=== PATIENT | female | born 1980 | race African-American/Black ===

== ENCOUNTER 2018-01-29 11:35 | Emergency (ER) | payer BC, OTHER ==
[~2018-01-29] VITALS: Ht 160 cm; Wt 72.6 kg
[2018-01-29 12:23] LABS: BASOPHILS 0.4 % (0.0-2.0); EOSINOPHILS 1.1 % (0.0-3.0); HEMATOCRIT 41.4 % (37.0-47.0); HEMOGLOBIN 13.8 gm/dL (12.0-15.0); LYMPHOCYTES 6.3 % (24.0-44.0); MCH 28.9 pg (26.0-34.0); MCHC 33.4 g/dL (28.0-37.0); MCV 86.5 fL (80.0-100.0); MONOCYTES 4.8 % (1.0-8.0); PLATELET COUNT 231 thou/uL (150-400); POLYS 87.4 % (36.0-66.0); RBC 4.78 mil/uL (4.20-5.00); RDW 14.1 % (10.5-14.5); WBC 14.9 thou/uL (4.0-11.0)
[2018-01-29 12:30] LABS: CALCIUM 9.3 mg/dL (8.5-10.1)
[2018-01-29] MEDS ORDERED: ZOFRAN ODT4 MG PO ×2 (14:18→14:21)
[2018-01-29] MEDS ORDERED: BENTYL 20 MG TA20 M1 PO ×2 (14:18→14:21)
[2018-01-29] MEDS ORDERED: CIPROFLOXACIN500 M1 PO ×2 (14:18→14:21)
== END 2018-01-29 14:29 | disposition home or self-care (01) ==
LOC: ER 11:35
PROVIDERS: Emergency Medicine
DX: A09 Infectious gastroenteritis and colitis, unspecified (principal)